=== PATIENT | female | born 1980 | race Caucasian/White ===

== ENCOUNTER → 2017-02-02 | Outpatient (CLI) | payer BC ==
[~2017-02-02] MED LIST: HYDR-4072 PO; OMEP20TA2 PO; RANI-470 PO
--- NOTE | 2017-02-03 09:22 | DI ---
Indication: ITS.REASON: G43.909 Migraine, unspecified, not intractable, without status m PROCEDURE: MRI BRAIN W/O CONTRAST: Encounter: Initial Comparisons: None. Technique: Multiplanar, multisequence, MR imaging of the head without contrast was acquired. FINDINGS: The ventricles are of normal size, shape, and contour for the patient's age. There are scattered T2/FLAIR signal hyperintensities in the left frontal and parietal white matter which are at the upper limits of normal for the patient's age but nonspecific. The brain stem, cerebellum, and cerebral hemispheres have a normal morphologic appearance as well as MR signal intensity on all pulse sequences. There are no areas of restricted diffusion on diffusion weighted imaging to suggest an acute infarct. There is no evidence of an intracranial mass lesion, intracranial hemorrhage, or hydrocephalus. The visualized portions of the orbits, calvarium, paranasal sinuses, and skull base demonstrate no significant abnormality. IMPRESSION: Nonspecific T2/flair white matter hyperintensities which could be due to migraine headaches or a number of other causes including postinfectious, postinflammatory and posttraumatic etiologies. .
== END ==
LOC: IMA 16:38
PROVIDERS: ATTEND Family Medicine
DX: G43.909 Migraine, unspecified, not intractable, without status migrainosus (principal); R90.89 Other abnormal findings on diagnostic imaging of central nervous system